=== PATIENT | female | born 1970 | race Caucasian/White ===

== ENCOUNTER → 2016-10-22 | Outpatient (CLI) | payer OTHER ==
[~2016-10-22] MED LIST: CARI350T PO; CYCL10TA2 PO; ESTR1TAB15 PO; ESTR1TAB3 PO; GABA800T2 PO; LISI10TA2 PO; MEDR2.5T28 PO; MELA3TAB PO; MORP30TA PO; PROG100C7 PO; PROM6.25 PO; ROPI0.5T PO; SUMA100T4 PO
--- NOTE | 2016-10-22 11:17 | RAD ---
Indication cold feet. Ultrasound was utilized to generate ankle-brachial indices. The right and left ankle-brachial indices are both 1.2. These values are normal. IMPRESSION: Normal ankle-brachial indices
== END | disposition home or self-care (01) ==
LOC: US 10:20
PROVIDERS: ATTEND Family Medicine
DX: R20.8 Other disturbances of skin sensation (principal)
CPT/HCPCS: 93922

== ENCOUNTER → 2016-11-02 | Outpatient (CLI) | payer OTHER ==
--- NOTE | 2016-11-04 11:32 | RAD ---
DATE: 11/02/2016 EXAM: DIGITAL DIAGNOSTIC BILATERAL, BREAST RIGHT HISTORY: Pain right breast COMPARISON: 01/20/2015 This study was interpreted with the benefit of Computerized Aided Detection (CAD ). FINDINGS: Breast Density: SCATTERED The breast parenchyma shows scattered fibroglandular densities. Breast parenchyma level B. In addition to routine views implant displacement views were obtained. No dominant mass or suspect group of calcifications is seen in either breast. Substantial change when compared to the previous exam is not seen. Bilateral breast implants are noted. There is encapsulated of both implants. Ultrasound was performed targeted to the area of tenderness in the right breast. The entire breast was evaluated. In addition to images submitted by the technologist a real-time examination was performed by me. No abnormality is seen. IMPRESSION: Benign mammographic findings. Bilateral breast implants which are at least partially encapsulated. Normal targeted ultrasound evaluation of the right breast IMPRESSION: BI-RADS CATEGORY: 2 Benign Finding(s) RECOMMENDED FOLLOW-UP: 12M 12 month follow up PQRS compliance statement: Patient information was entered into a reminder system with a target due date for the next mammogram. Mammography is a sensitive method for finding small breast cancers, but it does not detect them all and is not a substitute for careful clinical examination. A negative mammogram does not negate a clinically suspicious finding and should not result in delay in biopsying a clinically suspicious abnormality. "Our facility is accredited by the [employer] Mammography Program." MTDD
== END | disposition home or self-care (01) ==
LOC: MAMMO 13:02
PROVIDERS: ATTEND Family Medicine
DX: Z00.01 Encounter for general adult medical examination with abnormal findings (principal); N64.4 Mastodynia
CPT/HCPCS: 76641; G0204; 77066

== ENCOUNTER → 2016-11-03 | Outpatient (CLI) | payer OTHER ==
--- NOTE | 2016-11-03 08:56 | RAD ---
Indication:Abnormal liver function tests Grayscale images of the abdomen were obtained. Comparison none Liver:No focal mass is seen in the visualized liver. Gallbladder:Surgically absent. The common bile duct diameter is 9 mm which is within normal limits given the postcholecystectomy state. Spleen:Normal Pancreas:Normal Kidneys:Normal Abdominal aorta and IVC:The visualized inferior vena cava appears unremarkable. The proximal and mid abdominal aorta appear normal. The distal abdominal aorta was obscured by gas Ancillary findings:None Impression:No acute or significant finding. The distal abdominal aorta was obscured by gas
== END | disposition home or self-care (01) ==
LOC: US 06:38
PROVIDERS: ATTEND Family Medicine
DX: R79.89 Other specified abnormal findings of blood chemistry (principal)
CPT/HCPCS: 76700

== ENCOUNTER 2016-11-27 12:39 | Emergency (ER) | payer OTHER ==
[~2016-11-27 12:39] MED LIST changes: -MELA3TAB PO; +MELA3TAB2 PO; +PROG100C15 PO; -PROG100C7 PO
[2016-11-27 12:51] VITALS: BP 145/65
[2016-11-27 13:14] LABS: BILIRUBIN,URINE NEGATIVE (NEG); GLUCOSE,URINE NEGATIVE (NEG); NITRITE,URINE NEGATIVE (NEG); PH,URINE 7.5; PROTEIN,URINE NEGATIVE (NEG-TRACE); UROBILINOGEN,URINE 0.2 mg/dL (0.2 mg/dL)
[2016-11-27] MEDS ORDERED: CONTRAST GIVEN MC PRN (13:15)
[2016-11-27] MEDS ORDERED: IV NORMAL SALINE 1000ML BAG 1,000 ML IV ONE (13:15)
[2016-11-27] MEDS ORDERED: IOHEXOL 300 MG/ML 75 ML VIAL IV ONE (13:15)
--- NOTE | 2016-11-27 13:15 | PHYS DOC ---
Adult General Chief Complaint Chief Complaint: CONTISPATION HPI HPI Patient is a 46 year old female who presents with constipation for the past 14 days. Patient has a history of constipation secondary to taking morphine for her chronic low back pain. Patient has been taking [id number] laxatives and prescription laxatives to help counteract her constipation in conjunction with her family doctor however over the past 14 days she has been unable to go. She touch base with her family doctor yesterday who wanted her to come the emergency room however she was at [facility] with her daughter last night therefore came to the ER this morning. Patient denies any nausea or vomiting or diarrhea. Patient denies any fevers. Patient denies abdominal pain. Patient denies any chest pain or shortness of breath. Patient does state her urine has a funny smell to it that's been for the past 4 months however no one has and last urine. 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 Patient will be discharged. Pertinent results: CBC unremarkable CMP unremarkable CT scan abdomen pelvis not done MDM: After reviewing the chart, CC/HPI/PMH, physical exam, [lab results], do not bleed the patient has emergent medical condition warranting further workup and/ or admission at this time. Patient stated she can no longer wait any longer for the CT scan and elected not to have a CT scan done under seen all risks including and disability. Patient states she will follow-up with PCP for further evaluation and management. Patient was discharged. Additional verbal discharge instructions were provided to the patient and that if symptoms get worse or any new symptoms arise that are worrisome to the patient she is to return to the emergency room immediately Review of Systems Review of Systems GEN: Denies fevers, chills, sweats HEENT: Denies blurred vision, sore throat CV: Denies chest pain RESP: Denies shortness of air, cough GI: Constipation, Denies n/v/d NEURO: Denies confusion, dizziness MSK: Denies weakness, joint pain/swelling Current Medications Current Medications Current Medications Medications (Trade) Dose Ordered Sig/Brayden Start Time Stop Time Status Last Admin Dose Admin Info (Do NOT chart on this entry -- for MONITORING) 1 each PRN DAILY PRN 11/27/16 13:15 11/29/16 13:14 Iohexol (Omnipaque 300 Mg/ml) 75 ml 1X ONCE 11/27/16 13:15 11/27/16 13:16 DC Sodium Chloride 1,000 ml @ 1,000 mls/hr 1X ONCE 11/27/16 13:15 11/27/16 14:14 11/27/16 13:18 1,000 MLS/HR Allergies Allergies Allergies Coded Allergies Type Severity Reaction Last Updated Verified acetaminophen Allergy Severe "I STOP BREATHING" 11/27/16 Yes oxycodone Allergy Severe "I STOP BREATHING" 11/27/16 Yes codeine Allergy Intermediate 11/08/14 Yes Physical Exam Physical Exam GEN.: No apparent distress. Alert and oriented. HEENT: Head is normocephalic, atraumatic NECK: Supple. LUNGS: CTAB. HEART: RRR, S1, S2 present. Peripheral pulses intact ABDOMEN: Soft, nontender. Positive bowel sounds. EXTREMITIES: Without any cyanosis. NEUROLOGIC: Normal speech, normal tone PSYCHIATRIC: Normal affect, normal mood. SKIN: No ulcerations Current Patient Data Vital Signs Vital Signs Date Time Temp Pulse Resp B/P (MAP) Pulse Ox O2 Delivery O2 Flow Rate FiO2 11/27/16 12:51 97.5 104 20 145/65 (91) 100 Room Air 97.5 Lab Values Laboratory Tests Test 11/27/16 13:00 11/27/16 13:18 Urine Collection Type Unknown Urine Color Yellow Urine Clarity Cloudy Urine pH 7.5 Urine Specific [place] 1.015 Urine Protein Negative mg/dL (NEG-TRACE) Urine Glucose (UA) Negative mg/dL (NEG) Urine Ketones (Stick) Negative mg/dL (NEG) Urine Blood Negative (NEG) Urine Nitrite Negative (NEG) Urine Bilirubin Negative (NEG) Urine Urobilinogen Dipstick 0.2 mg/dL (0.2 mg/dL) Urine Leukocyte Esterase Moderate (NEG) Urine RBC Occ /HPF (0-2) Urine WBC 11-20 /HPF (0-4) Urine Squamous Epithelial Cells Many /LPF Urine Bacteria Many /HPF (0-FEW) Urine Mucus Mod /LPF Urine Test Negative (NEG) White Blood Count 6.0 x10^3/uL (4.0-11.0) Red Blood Count 3.85 x10^6/uL (3.50-5.40) Hemoglobin 12.5 g/dL (12.0-15.5) Hematocrit 37.4 % (36.0-47.0) Mean Corpuscular Volume 97 fL (79-100) Mean Corpuscular Hemoglobin 33 pg (25-35) Mean Corpuscular Hemoglobin Concent 34 g/dL (31-37) Red Cell Distribution Width 13.8 % (11.5-14.5) Platelet Count 217 x10^3/uL (140-400) Neutrophils (%) (Auto) 60 % (31-73) Lymphocytes (%) (Auto) 31 % (24-48) Monocytes (%) (Auto) 7 % (0-9) Eosinophils (%) (Auto) 2 % (0-3) Basophils (%) (Auto) 1 % (0-3) Neutrophils # (Auto) 3.6 x10^3uL (1.8-7.7) Lymphocytes # (Auto) 1.8 x10^3/uL (1.0-4.8) Monocytes # (Auto) 0.4 x10^3/uL (0.0-1.1) Eosinophils # (Auto) 0.1 x10^3/uL (0.0-0.7) Basophils # (Auto) 0.0 x10^3/uL (0.0-0.2) Sodium Level 141 mmol/L (136-145) Potassium Level 3.6 mmol/L (3.5-5.1) Chloride Level 106 mmol/L (98-107) Carbon Dioxide Level 25 mmol/L (21-32) Anion Gap 10 (6-14) Blood Urea Nitrogen 19 mg/dL (7-20) Creatinine 1.1 mg/dL (0.6-1.0) H Estimated GFR (Cockcroft-Gault) 53.0 BUN/Creatinine Ratio 17 (6-20) Glucose Level 84 mg/dL (70-99) Calcium Level 8.8 mg/dL (8.5-10.1) Total Bilirubin 0.3 mg/dL (0.2-1.0) Aspartate Amino Transferase (AST) 18 U/L (15-37) Alanine Aminotransferase (ALT) 38 U/L (14-59) Alkaline Phosphatase 70 U/L (46-116) Total Protein 6.4 g/dL (6.4-8.2) Albumin 3.5 g/dL (3.4-5.0) Albumin/Globulin Ratio 1.2 (1.0-1.7) Lipase 102 U/L (73-393) Laboratory Tests 11/27/16 13:18 Laboratory Tests 11/27/16 13:18 EKG EKG [] Radiology/Procedures Radiology/Procedures [] Course & Med Decision Making Course & Med Decision Making Pertinent Labs and Imaging studies reviewed. (See chart for details) [] Dragon Disclaimer Dragon Disclaimer This electronic medical record was generated, in whole or in part, using a voice recognition dictation system. Departure Departure Impression: Primary Impression: Abdominal pain Additional Impression: Constipation Disposition: 01 HOME, SELF-CARE Condition: STABLE Referrals: MILLER TORRES MD (PCP) Patient Instructions: Abdominal Pain, Constipation, Adult Additional Instructions: Please follow up with her family doctor in one to 2 days Problem Qualifiers GERMÁN SANCHEZ DO Nov 27, 2016 13:15
[2016-11-27 13:21] LABS: SQUAMOUS EPITHELIAL CELL,UR MANY /LPF
[2016-11-27 13:22] LABS: BACTERIA,URINE MANY /HPF (0-FEW); RBC,URINE OCC /HPF (0-2)
[2016-11-27 13:33] LABS: BASO % 1 % (0-3); EOS % 2 % (0-3); HEMATOCRIT 37.4 % (36.0-47.0); HEMOGLOBIN 12.5 g/dL (12.0-15.5); LYMPH # 1.8 x10^3/uL (1.0-4.8); LYMPH % 31 % (24-48); MEAN CORPUSCULAR HEMOGLOBIN 33 pg (25-35); MEAN CORPUSCULAR HGB CONC 34 g/dL (31-37); MEAN CORPUSCULAR VOLUME 97 fL (79-100); MONO % 7 % (0-9); NEUT % 60 % (31-73); PLATELET COUNT 217 x10^3/uL (140-400); RED BLOOD COUNT 3.85 x10^6/uL (3.50-5.40); RED CELL DISTRIBUTION WIDTH 13.8 % (11.5-14.5)
[2016-11-27 13:41] LABS: CALCIUM 8.8 mg/dL (8.5-10.1); CREATININE 1.1 mg/dL (0.6-1.0); POTASSIUM 3.6 mmol/L (3.5-5.1)
[2016-11-27 13:46] LABS: ALBUMIN 3.5 g/dL (3.4-5.0); ALBUMIN/GLOBULIN RATIO 1.2 (1.0-1.7); TOTAL BILIRUBIN 0.3 mg/dL (0.2-1.0); TOTAL PROTEIN 6.4 g/dL (6.4-8.2)
[2016-11-27 13:49] LABS: NEG OBC UR NEG; POS OBC UR POS
== END 2016-11-27 13:50 | disposition home or self-care (01) ==
LOC: ER 12:39
DX: K59.00 Constipation, unspecified (principal); G89.29 Other chronic pain; M54.5 Low back pain; Z88.5 Allergy status to narcotic agent; Z88.8 Allergy status to other drugs, medicaments and biological substances
CPT/HCPCS: 36415; 80053; 81001; 81025; 83690; 85027; 87086; 87186; 96360; 99284; J7030

== ENCOUNTER → 2016-12-29 | Day surgery (SDC) | payer OTHER ==
[~2016-12-29] MED LIST changes: +ASPI-482 PO; +ESTR1TAB99 PO; +FURO20TA3 PO; +IV RINGERS,LACTATED 1000ML 1,000 ML IV SCH; +LIDOCAINE 1% 1 ML SYRINGE. ID PRN; +LIDOCAINE 2% PF Vial for OR 5 ML VIAL. ONE; +LUBI24CA7 PO; +ONDANSETRON PF 4 MG/2 ML VIAL. IV PRN; +PHEN37.5 PO; +PROCHLORPERAZINE 10 MG/2 ML VIAL. IV PRN; +PROPOFOL 20 ML IV ONE; +PROPOFOL 40 ML IV ONE; +RANI150C PO; +TOPI50TA8 PO; +fentaNYL PF VIAL 100 MCG/2 ML VIAL IV PRN
[2016-12-29 09:25] VITALS: BP 112/70
--- NOTE | 2016-12-30 11:24 | PATHOLOGY ---
PATHOLOGY REPORT * * * * * * * * FINAL DIAGNOSIS: A. Duodenal biopsy: - No significant pathologic abnormalities. B. Esophageal biopsy, distal esophagus: - Segments of hyperplastic squamous esophageal mucosa, consistent with reflux esophagitis. C, Colon biopsy, splenic flexure polyp: - Tubular adenoma. COMMENT: Sections of the duodenal biopsy reveal segments of duodenal and small intestine mucosa. Where best oriented, the mucosal villi appear normal. There are no sprue-like changes or significant inflammatory changes. Sections of the distal esophageal biopsy reveal segments of focally tangentially oriented, hyperplastic squamous esophageal mucosa. The findings are consistent with reflux esophagitis. There is no evidence of Delgadillo's change, dysplasia or malignancy. Sections of the splenic flexure biopsy reveal a tubular adenoma showing no high grade dysplasia or evidence of malignancy. (JPM:pit; 12/30/2016) REPORT ELECTRONICALLY SIGNED BY: Jose Hancock M.D. DATE/TIME: 12/30/2016 11:23 * * * * * * * * GROSS PATHOLOGY: A. Received in formalin labeled "Odette Whitehead, duodenal biopsy," are multiple segments of levi soft tissue measuring from less than 0.1 up to 0.3 cm in maximum dimension. The specimen is submitted entirely in cassette A1. B. Received in formalin labeled "distal esophageal biopsy," are three segments of levi soft tissue measuring from 0.3 up to 0.4 cm in maximum dimension. The specimen is submitted entirely in cassette B1. C. Received in formalin labeled "splenic flexure polyp," is a segment of levi soft tissue measuring 0.03 cm in maximum dimension. The specimen is submitted entirely in cassette C1. (JPM; 12/29/16) INITIAL CPT CODE(S): A; 46124 B; 80650 C; 40255 Professional services performed by [facility] at [facility] [address] [place] [address] Technical services performed by [facility] at [address] [place] [address], [address], [place] [address]. SPECIMEN(S) RECEIVED: A.Duodenal biopsy B.Distal esophageal biopsy C.Splenic flexure polyp CLINICAL HISTORY: Abdominal pain PATIENT: ODETTE WHITEHEAD /AGE: 510/12/1970 (Age: 46) PATIENT #: [id number] ALT CASE #: SPECIMEN COLLECTION DATE: 12/29/2016 SPECIMEN RECEIVED DATE: 12/29/2016 [facility] - [id number] [address] - PHONE: [phone] * * * END OF REPORT * * *
== END | disposition home or self-care (01) ==
LOC: ENDOS 07:12
PROVIDERS: ATTEND Internal Medicine Gastroenterology
DX: D12.3 Benign neoplasm of transverse colon (principal); K57.30 Diverticulosis of large intestine without perforation or abscess without bleeding; K64.0 First degree hemorrhoids; K29.70 Gastritis, unspecified, without bleeding; K31.89 Other diseases of stomach and duodenum; K21.0 Gastro-esophageal reflux disease with esophagitis; E78.00 Pure hypercholesterolemia, unspecified; I10 Essential (primary) hypertension; F41.9 Anxiety disorder, unspecified; F32.9 Major depressive disorder, single episode, unspecified; Z90.49 Acquired absence of other specified parts of digestive tract; Z98.51 Tubal ligation status; Z87.39 Personal history of other diseases of the musculoskeletal system and connective tissue; Z88.6 Allergy status to analgesic agent; Z91.040 Latex allergy status
CPT/HCPCS: 43239; 45385; 88305; J2001; J2704

== ENCOUNTER → 2017-01-11 | Outpatient (CLI) | payer OTHER ==
[2016-12-29 09:25] VITALS: BP 112/70
[~2017-01-11] MED LIST changes: -IV RINGERS,LACTATED 1000ML 1,000 ML IV SCH; -LIDOCAINE 1% 1 ML SYRINGE. ID PRN; -LIDOCAINE 2% PF Vial for OR 5 ML VIAL. ONE; -ONDANSETRON PF 4 MG/2 ML VIAL. IV PRN; -PROCHLORPERAZINE 10 MG/2 ML VIAL. IV PRN; -PROPOFOL 20 ML IV ONE; -PROPOFOL 40 ML IV ONE; -fentaNYL PF VIAL 100 MCG/2 ML VIAL IV PRN
--- NOTE | 2017-01-11 13:38 | RAD ---
Right knee, 3 views, 01/11/2017: History: Knee pain AP standing views of both knees as well as lateral and obliquely views of the right knee were obtained as requested. The knee joint spaces are well preserved. There is mild marginal spurring bilaterally. There is mild degenerative change at the right patellofemoral articulation. No fracture or dislocation is identified. No significant joint effusion is evident. IMPRESSION: 1. Mild degenerative change. 2. No acute abnormality is detected.
== END | disposition home or self-care (01) ==
LOC: RAD 12:10
PROVIDERS: ATTEND Family Medicine
DX: M17.11 Unilateral primary osteoarthritis, right knee (principal)
CPT/HCPCS: 73560; 73565